=== PATIENT | female | born 1955 | race Caucasian/White ===

== ENCOUNTER 2019-12-16 20:00 | Inpatient (IN) ==
[2019-12-16] MEDS ORDERED: NS 1000 ML 1,000 ML IV ONE (20:20)
[2019-12-16] MEDS ORDERED: NS 1000 ML 1,000 ML ONE ×2 (20:21→21:31)
--- NOTE | 2019-12-16 20:48 | DR.AMS ---
HPI - Time Seen Time seen: 20:00 - HPI Comment HPI Comment: Patient sent through Er as a direct admit to get a covid19 test but due to low BP and low Oxygen sats was admitted as an ER patient. DR. Phillips has given orders. The patient is unresponsive from the long-term and is total care at the long-term. - Source History Provided: Care Home - Mode of Arrival Mode of Arrival: Stretcher - Timing Came On: Gradually Symptoms: Improving - Duration Duration: Constant Duration: Hours - Quality Quality: Decreased Alertness - Severity Severity: Unable to care for self (this is normal for this patient) - Context Recent: None History Of: Dementia, Diabetes - Associated Signs and Symptoms Associated Signs and Symptoms: Unresponsiveness PMH - PMH Past Medical History: Anxiety, CHF, Diabetes, GERD, Hypertension ROS - Review of Systems Constitutional: Weakness Eyes: No Symptoms Reported ENTM: No Symptoms Reported Respiratoy: No Symptoms Reported Cardiovascular: No Symptoms Reported Gastrointestinal/Abdominal: No Symptoms Reported Genitourinary: No Symptoms Reported Neurological: Weakness, Speech Problem Musculoskeletal: No Symptoms Reported Integumentary: No Symptoms Reported Hematologic/Lymphatic: No Symptoms Reported Endocrine: No Symptoms Reported Psychiatric: Depression, Other (psych disorder) Unable to Obtain Due To: Altered mental status PE - General Limitations: Altered Mental Status General Appearance: Obtunded - Head Head Exam: Normal Inspection - Eyes Eye exam: Normal Appearance, PERRL - ENT ENT Exam: Normal Exam External Ear Exam: Normal External Inspection Nose Exam: Normal Nose Exam Mouth Exam: Normal Inspection Throat Exam: Normal Inspection - Neck Neck Exam: Normal Inspection, Full ROM, Trachea Midline - Chest Chest Inspection: Normal Inspection - Respiratory Respiratory Exam: Normal Lung Sounds Bilat Respiratory Exam: Bilateral Clear to Auscultation - Cardiovascular Cardiovascular Exam: Regular Rate - Abdominal Exam Abdominal Exam: Normal Inspection, Normal Bowel Sounds, Soft. negative: Distention, Tenderness, Guarding - Extremities Extremities Exam: Normal Inspection, Full ROM. negative: Tenderness - Neurological Neurological Exam: Other (unable to test) - Psychological Psychiatric Exam: Anxious - Skin Skin Exam: Normal Color - Vitals Vital Signs: Temp Pulse Pulse Resp BP BP Pulse Ox 12/16/19 21:20 62 14 126/56 100 12/16/19 21:15 62 14 100 12/16/19 21:00 64 15 108/53 97 12/16/19 20:59 65 15 91 L 12/16/19 20:45 66 16 112/51 100 12/16/19 20:10 72 16 75/42 100 12/16/19 20:05 72/40 12/16/19 20:00 98.4 F 78 14 71/38 85 L Course - Treatment Treatment: DR. Phillips in ER to check patient, BP increased after IVF ROR - Labs Reviewed Result Diagrams: 12/16/19 20:34 12/16/19 20:34 - XRAY XRAY Interpreted by: Radiologist - EKG Rate: 70 [place]: Normal Rhythm: Afib ST: Nonsp (low voltage) - Labs Reviewed Laboratory: WBC 9.1 X10^3/uL (3.6-10.0) 12/16/19 20:34 RBC 4.35 X10^6/uL (3.5-5.4) 12/16/19 20:34 Hgb 15.1 g/dL (12.0-16.0) 12/16/19 20:34 Hct 45.5 % (36.0-47.0) 12/16/19 20:34 MCV 104.6 fL (80.0-100.0) H 12/16/19 20:34 MCH 34.8 pg (27.0-34.0) H 12/16/19 20:34 MCHC 33.3 g/dL (33.0-35.0) 12/16/19 20:34 RDW 18.9 % (11.6-16.5) H 12/16/19 20:34 Plt Count 155 X10^3/uL (150.0-450.0) 12/16/19 20:34 MPV 10.9 fL (7.4-11.0) 12/16/19 20:34 Neut % (Auto) 68.5 % (42.0-75.0) 12/16/19 20:34 Lymph % (Auto) 17.9 % (21.0-51.0) L 12/16/19 20:34 [place] % (Auto) 11.9 % (0.0-13.0) 12/16/19 20:34 Eos % (Auto) 1.3 % (0.9-2.9) 12/16/19 20:34 Baso % (Auto) 0.4 % (0.2-1.0) 12/16/19 20:34 Neut # (Auto) 6.2 x10^3/uL (2.2-4.8) H 12/16/19 20:34 Lymph # (Auto) 1.6 X10^3/uL (1.3-2.9) 12/16/19 20:34 [place] # (Auto) 1.1 x10^3/uL (0.3-0.8) H 12/16/19 20:34 Eos # (Auto) 0.1 x10^3/uL (0.0-0.2) 12/16/19 20:34 Baso # (Auto) 0.0 X10^3/uL (0.0-0.1) 12/16/19 20:34 Absolute Nucleated RBC 0.2 /100WBC 12/16/19 20:34 Sample Site Rb 12/16/19 21:29 ABG pH 7.410 (7.35-7.45) 12/16/19 21:29 ABG pCO2 44.0 mmHg (35.0-45.0) 12/16/19 21:29 ABG pO2 187.0 mmHg (80.0-100.0) H 12/16/19 21:29 ABG HCO3 27.9 mmol/L (22-26) H 12/16/19 21:29 ABG O2 Saturation 100.0 % (90-100) 12/16/19 21:29 ABG Base Excess 2.8 mmol/L (-2.0-2.0) H 12/16/19 21:29 Fredrick Test Na 12/16/19 21:29 A-a Gradient -42.0 mmHg 12/16/19 21:29 FiO2 28.0 12/16/19 21:29 Blood Gas Comments Gianni abg well-mtf 12/16/19 21:29 Sodium 154 mmol/L (136-145) H* 12/16/19 20:34 Corrected Sodium 156 mmol/L (136-145) H 12/16/19 20:34 Potassium 5.0 mmol/L (3.5-5.1) 12/16/19 20:34 Chloride 118 mmol/L (98-107) H* 12/16/19 20:34 Carbon Dioxide 31.2 mmol/L (21-32) 12/16/19 20:34 BUN 102 mg/dL (7-18) H 12/16/19 20:34 Creatinine 3.42 mg/dL (0.55-1.02) H 12/16/19 20:34 Est GFR (MDRD) Af Amer 17 (>60) L 12/16/19 20:34 Est GFR (MDRD) Non-Af 14 (>60) L 12/16/19 20:34 Glucose 163 mg/dL (65-99) H 12/16/19 20:34 POC Glucose (mg/dL) 129 mg/dL (65-99) H 12/16/19 20:39 Lactic Acid 3.5 mmol/L (0.4-2.0) H 12/16/19 20:34 Calcium 10.8 mg/dL (8.5-10.1) H 12/16/19 20:34 Corrected Calcium 12.2 mg/dL (8.5-10.1) H 12/16/19 20:34 Magnesium 2.8 mg/dL (1.7-2.9) 12/16/19 20:34 Total Bilirubin 3.30 mg/dL (0.2-1.0) H 12/16/19 20:34 AST 50 Units/L (15-37) H 12/16/19 20:34 ALT 43 Units/L (12-78) 12/16/19 20:34 Alkaline Phosphatase 89 Units/L (46-116) 12/16/19 20:34 Creatine Kinase 153 Units/L (26-192) 12/16/19 20:34 CK-MB (CK-2) 2.4 ng/mL (0-4.0) 12/16/19 20:34 CK/CKMB % Calc 1.6 % (<4) 12/16/19 20:34 Troponin I 0.07 ng/mL (0-1.5) 12/16/19 20:34 Total Protein 5.7 g/dL (6.4-8.2) L 12/16/19 20:34 Albumin 2.3 g/dL (3.4-5.0) L 12/16/19 20:34 Globulin 3.4 g/dL (2.5-4.5) 12/16/19 20:34 Albumin/Globulin Ratio 0.7 Ratio (1.1-2.1) L 12/16/19 20:34 - XRAY Xray Findings: chest: IMPRESSION: 1. No acute cardiopulmonary process. (MARQUIS ALBERTS) Opioid - Opioid Risk Tool Total: 0 Total Score Risk Category: Low Risk - Diagnosis Discharge Problem: Altered mental status, unspecified Qualifiers: Altered mental status type: stupor Qualified Code(s): R40.1 - Stupor Hypotension Qualifiers: Hypotension type: hypotension due to hypovolemia Qualified Code(s): I95.89 - Other hypotension - Discharge Plan Condition: Stable - Follow ups/Referrals Follow ups/Referrals: ROBERTO PHILLIPS [Primary Care Provider] - 3 days - Instructions
[2019-12-16 20:56] LABS: BASOPHILS % (AUTO) 0.4 % (0.2-1.0); EOSINOPHILS # (AUTO) 0.1 x10^3/uL (0.0-0.2); EOSINOPHILS % (AUTO) 1.3 % (0.9-2.9); HEMATOCRIT 45.5 % (36.0-47.0); HEMOGLOBIN 15.1 g/dL (12.0-16.0); LYMPHOCYTES # (AUTO) 1.6 X10^3/uL (1.3-2.9); LYMPHOCYTES % (AUTO) 17.9 % (21.0-51.0); MEAN CORPUSCULAR HEMOGLOBIN 34.8 pg (27.0-34.0); MEAN CORPUSCULAR HGB CONC 33.3 g/dL (33.0-35.0); MEAN CORPUSCULAR VOLUME 104.6 fL (80.0-100.0); MEAN PLATELET VOLUME 10.9 fL (7.4-11.0); MONOCYTES # (AUTO) 1.1 x10^3/uL (0.3-0.8); MONOCYTES % (AUTO) 11.9 % (0.0-13.0); NEUTROPHILS # (AUTO) 6.2 x10^3/uL (2.2-4.8); NEUTROPHILS % (AUTO) 68.5 % (42.0-75.0); PLATELET COUNT 155 X10^3/uL (150.0-450.0); RED BLOOD COUNT 4.35 X10^6/uL (3.5-5.4); RED CELL DISTRIBUTION WIDTH 18.9 % (11.6-16.5); WHITE BLOOD COUNT 9.1 X10^3/uL (3.6-10.0)
[2019-12-16] MEDS ORDERED: NS 1000 ML 1,000 ML IV SCH (21:00)
--- NOTE | 2019-12-16 21:13 | RAD ---
CHEST, 1 VIEWHISTORY: AMSStudy: Single view of the chest.Comparison:NoneFindings:The cardiomediastinal silhouette is normal.No focal consolidations, pleural effusions or pneumothorax. Osseous structures demonstrate no acute abnormality.IMPRESSION:1. No acute cardiopulmonary process.Electronically signed by: ROLAND ARANDA (December 16, 2019 21:12:05)
[2019-12-16 21:16] LABS: LACTIC ACID 3.5 mmol/L (0.4-2.0)
[2019-12-16] MEDS ORDERED: NS 100 ML IV + SPIKE MINIBAG* 100 ML IV ONE (21:32)
[2019-12-16] MEDS ORDERED: ROCEPHIN VIAL 1 GRAM ONE (21:32)
[2019-12-16 21:34] LABS: ALBUMIN 2.3 g/dL (3.4-5.0); CALCIUM 10.8 mg/dL (8.5-10.1); CARBON DIOXIDE 31.2 mmol/L (21-32); CKMB % 1.6 % (<4); COR CA(FOR HYPOALB) 12.2 mg/dL (8.5-10.1); CREATINE KINASE MB 2.4 ng/mL (0-4.0); CREATININE 3.42 mg/dL (0.55-1.02); MAGNESIUM 2.8 mg/dL (1.7-2.9); TOTAL PROTEIN 5.7 g/dL (6.4-8.2); TROPONIN I 0.07 ng/mL (0-1.5)
[2019-12-16 21:35] LABS: ABG BASE EXCESS 2.8 mmol/L (-2.0-2.0); ABG HCO3 27.9 mmol/L (22-26)
[2019-12-16] MEDS: ROCEPHIN VIAL 1 GRAM 1 G in NS 100 ML IV + SPIKE MINIBAG* 100 ML IV SCH (21:39)
[2019-12-16] MEDS ORDERED: NS 1000 ML 0 ML ONE (22:21)
[2019-12-17 00:37] LABS: BILIRUBIN,URINE 2+ (NEGATIVE); BLOOD/HEMOGLOBIN,URINE 2+ (NEGATIVE); GLUCOSE, URINE NEGATIVE (NEGATIVE); KETONES,URINE 1+ (NEGATIVE); LEUKOCYTE ESTERASE ,URINE 2+ (NEGATIVE); NITRITES,URINE POSITIVE (NEGATIVE); PROTEIN,URINE 2+ (NEGATIVE); UROBILINOGEN,URINE 3+ (NORMAL)
[2019-12-17 00:55] LABS: APPEARANCE,URINE CLOUDY (CLEAR); BACTERIA,URINE 3+ /HPF (NEGATIVE); COLOR,URINE AMBER (YELLOW); HYALINE CASTS, URINE MODERATE /LPF (NEGATIVE); RBC,URINE 0-2 /HPF (0-3); SQUAMOUS EPITHELIAL CELL,UR NUMEROUS /HPF (NEGATIVE)
[2019-12-17 00:56] LABS: GRANULAR CASTS,URINE FEW /LPF (NEGATIVE)
[2019-12-17 02:11] VITALS: BMI 34.9
[2019-12-17] MEDS ORDERED: PHARMACY CONSULT LTC MEDICATIONS XX SCH (03:00)
[2019-12-17 06:11] LABS: BASOPHILS % (AUTO) 0.4 % (0.2-1.0); EOSINOPHILS # (AUTO) 0.1 x10^3/uL (0.0-0.2); EOSINOPHILS % (AUTO) 1.4 % (0.9-2.9); HEMATOCRIT 42.3 % (36.0-47.0); LYMPHOCYTES % (AUTO) 20.1 % (21.0-51.0); MEAN CORPUSCULAR HEMOGLOBIN 34.7 pg (27.0-34.0); MEAN CORPUSCULAR HGB CONC 33.1 g/dL (33.0-35.0); MEAN PLATELET VOLUME 10.6 fL (7.4-11.0); MONOCYTES # (AUTO) 1.2 x10^3/uL (0.3-0.8); MONOCYTES % (AUTO) 11.8 % (0.0-13.0); NEUTROPHILS # (AUTO) 6.6 x10^3/uL (2.2-4.8); NEUTROPHILS % (AUTO) 66.3 % (42.0-75.0); PLATELET COUNT 131 X10^3/uL (150.0-450.0); RED BLOOD COUNT 4.03 X10^6/uL (3.5-5.4); WHITE BLOOD COUNT 9.9 X10^3/uL (3.6-10.0)
[2019-12-17 06:23] LABS: ALBUMIN 2.2 g/dL (3.4-5.0); CALCIUM 10.2 mg/dL (8.5-10.1); CARBON DIOXIDE 29.2 mmol/L (21-32); COR CA(FOR HYPOALB) 11.6 mg/dL (8.5-10.1); CREATININE 3.03 mg/dL (0.55-1.02); TOTAL PROTEIN 5.2 g/dL (6.4-8.2)
[2019-12-17] MEDS: ROCEPHIN VIAL 1 GRAM 1 G in NS 100 ML IV + SPIKE MINIBAG* 100 ML IV SCH (08:32)
[2019-12-17] MEDS ORDERED: TYLENOL 325 MG TAB PO PRN (08:38)
[2019-12-17] MEDS: ASPIRIN 81 MG CHEWTAB PO SCH (11:51)
[2019-12-17] MEDS: BUSPAR PO SCH ×2 (11:57→22:16)
[2019-12-17] MEDS: LOVENOX INJ 30 MG SYR SC SCH (12:30)
[2019-12-17] MEDS: NS 1/2 1000 ML IV 1,000 ML IV SCH ×2 (12:42→22:40)
[2019-12-17] MEDS ORDERED: NS 1/2 1000 ML IV 1,000 ML IV ONE ×2 (12:43→22:40)
[2019-12-17] MEDS: PRAVACHOL PO SCH (22:18)
[2019-12-18 06:18] LABS: BASOPHILS # (AUTO) 0.1 X10^3/uL (0.0-0.1); BASOPHILS % (AUTO) 0.7 % (0.2-1.0); EOSINOPHILS # (AUTO) 0.2 x10^3/uL (0.0-0.2); EOSINOPHILS % (AUTO) 1.8 % (0.9-2.9); HEMATOCRIT 39.8 % (36.0-47.0); HEMOGLOBIN 13.3 g/dL (12.0-16.0); LYMPHOCYTES # (AUTO) 1.8 X10^3/uL (1.3-2.9); LYMPHOCYTES % (AUTO) 16.9 % (21.0-51.0); MEAN CORPUSCULAR HGB CONC 33.5 g/dL (33.0-35.0); MEAN CORPUSCULAR VOLUME 104.6 fL (80.0-100.0); MEAN PLATELET VOLUME 11.2 fL (7.4-11.0); MONOCYTES # (AUTO) 1.1 x10^3/uL (0.3-0.8); MONOCYTES % (AUTO) 10.2 % (0.0-13.0); NEUTROPHILS # (AUTO) 7.6 x10^3/uL (2.2-4.8); NEUTROPHILS % (AUTO) 70.4 % (42.0-75.0); PLATELET COUNT 151 X10^3/uL (150.0-450.0); RED CELL DISTRIBUTION WIDTH 18.4 % (11.6-16.5); WHITE BLOOD COUNT 10.8 X10^3/uL (3.6-10.0)
[2019-12-18 06:40] LABS: ALBUMIN 2.2 g/dL (3.4-5.0); CALCIUM 10.2 mg/dL (8.5-10.1); CARBON DIOXIDE 26.1 mmol/L (21-32); COR CA(FOR HYPOALB) 11.6 mg/dL (8.5-10.1); CREATININE 2.84 mg/dL (0.55-1.02); TOTAL PROTEIN 5.3 g/dL (6.4-8.2)
[2019-12-18] MEDS: ROCEPHIN VIAL 1 GRAM 1 G in NS 100 ML IV + SPIKE MINIBAG* 100 ML IV SCH (09:21)
[2019-12-18] MEDS: LOVENOX INJ 30 MG SYR SC SCH (09:21)
[2019-12-18] MEDS: ASPIRIN 81 MG CHEWTAB PO SCH (09:24)
[2019-12-18] MEDS: BUSPAR PO SCH (09:24)
--- NOTE | 2019-12-18 10:08 | CT ---
HISTORYAMSSTUDYMRI BRAIN W/O IV CONCOMPARISONCT 04/08/2019TECHNIQUEMultiple axial images of the brain were obtained without IV contrast. Dose reduction techniques including Automated Exposure Control (AEC) and adjustment of mA and kV were utilized.FINDINGSVisualized portions of the paranasal sinuses and mastoid air cells are clear. No calvarial fracture is seen. No acute intracranial hemorrhage or mass effect is seen. Moderate diffuse volume loss in the brain with compensatory enlargement of the ventricular system, similar to prior study. No evidence of acute CVA. Mild chronic small vessel ischemic changes in the white matter are likely similar to prior study.IMPRESSIONNo acute intracranial abnormalities are seen.Electronically signed by: Pérez Jung (Dec 18, 2019 10:06:56)
[2019-12-18] MEDS ORDERED: NS 1/2 1000 ML IV 1,000 ML IV ONE (16:14)
[2019-12-18] MEDS: NS 1/2 1000 ML IV 1,000 ML IV SCH (16:20)
[2019-12-18 18:35] LABS: ABG BASE EXCESS 4.3 mmol/L (-2.0-2.0); ABG HCO3 29.8 mmol/L (22-26)
[2019-12-18 18:36] LABS: ABG ALLEN TEST POS
[2019-12-18 20:05] LABS: TROPONIN I 0.13 ng/mL (0-1.5)
[2019-12-18 20:09] LABS: CKMB % 0.7 % (<4); CREATINE KINASE MB 10.4 ng/mL (0-4.0)
[2019-12-18] MEDS: PRAVACHOL PO SCH (21:18)
--- NOTE | 2019-12-18 23:07 | RAD ---
HISTORYams hypotension dehydration.br conditionSTUDYCHEST, 1 VIEWCOMPARISONMay 2019FINDINGSThe patient is rotated. The cardiac silhouette is enlarged with prominence of the central pulmonary vasculature. Increased interstitial markings and mild bronchial wall thickening are also noted.. The aorta is partially calcified and tortuous.IMPRESSIONCardiomegaly with prominence of the central pulmonary vasculature.Increased interstitial markings and mild bronchial wall thickening.Electronically signed by: OSMAN THOMAS (Dec 18, 2019 23:06:02)
[2019-12-19] MEDS ORDERED: NS 1/2 1000 ML IV 1,000 ML IV ONE ×2 (00:31→18:09)
[2019-12-19] MEDS: NS 1/2 1000 ML IV 1,000 ML IV SCH ×3 (00:36→18:39)
[2019-12-19 05:42] LABS: BASOPHILS # (AUTO) 0.1 X10^3/uL (0.0-0.1); BASOPHILS % (AUTO) 0.6 % (0.2-1.0); EOSINOPHILS # (AUTO) 0.3 x10^3/uL (0.0-0.2); EOSINOPHILS % (AUTO) 4.1 % (0.9-2.9); HEMATOCRIT 40.2 % (36.0-47.0); HEMOGLOBIN 13.3 g/dL (12.0-16.0); LYMPHOCYTES # (AUTO) 1.7 X10^3/uL (1.3-2.9); LYMPHOCYTES % (AUTO) 19.6 % (21.0-51.0); MEAN CORPUSCULAR HEMOGLOBIN 34.9 pg (27.0-34.0); MEAN CORPUSCULAR HGB CONC 33.1 g/dL (33.0-35.0); MEAN CORPUSCULAR VOLUME 105.5 fL (80.0-100.0); MEAN PLATELET VOLUME 10.7 fL (7.4-11.0); MONOCYTES # (AUTO) 0.9 x10^3/uL (0.3-0.8); MONOCYTES % (AUTO) 10.2 % (0.0-13.0); NEUTROPHILS # (AUTO) 5.5 x10^3/uL (2.2-4.8); NEUTROPHILS % (AUTO) 65.5 % (42.0-75.0); PLATELET COUNT 130 X10^3/uL (150.0-450.0); RED BLOOD COUNT 3.81 X10^6/uL (3.5-5.4); WHITE BLOOD COUNT 8.5 X10^3/uL (3.6-10.0)
[2019-12-19 05:55] LABS: ALBUMIN 2.1 g/dL (3.4-5.0); CARBON DIOXIDE 30.6 mmol/L (21-32); COR CA(FOR HYPOALB) 11.5 mg/dL (8.5-10.1); CREATININE 2.13 mg/dL (0.55-1.02); TOTAL PROTEIN 5.1 g/dL (6.4-8.2)
[2019-12-19 06:21] LABS: PLATELET MORPHOLOGY COMMENT NORMAL (NORMAL)
[2019-12-19 07:24] LABS: TROPONIN I 0.1 ng/mL (0-1.5)
[2019-12-19 07:28] LABS: CREATINE KINASE MB 10.4 ng/mL (0-4.0)
[2019-12-19] MEDS: LOVENOX INJ 30 MG SYR SC SCH (09:25)
[2019-12-19] MEDS: ROCEPHIN VIAL 1 GRAM 1 G in NS 100 ML IV + SPIKE MINIBAG* 100 ML IV SCH (09:25)
[2019-12-19] MEDS: ASPIRIN 81 MG CHEWTAB PO SCH (10:32)
--- NOTE | 2019-12-19 12:46 | MRI ---
HISTORYALTERED MENTAL STATUSSTUDYBRAIN W/O CONCOMPARISONCT head dated 12/18/2019TECHNIQUEMultiplanar multi-sequence MRI of the brain was obtained utilizing standard departmental protocol. Sagittal and axial T1 weighted images were obtained. Axial T2 and flair weighted images were performed as well. Axial diffusion weighted and ADC trace mapping was performed.FINDINGSThere is motion artifact. There is mild central and peripheral volume loss. There is no evidence of acute infarct. No focal areas of restricted diffusion. . No evidence of sellar masses. No extra axial fluid collections, no suspicions for abnormal intraparenchymal susceptibility artifact,the visualization of the flow-voids is limited. Mild high signal in the left mastoid cellsIMPRESSIONNo evidence of acute infarct or focal areas of restricted diffusion. Central and peripheral volume loss. Motion artifact. No dominant hematomas.Fairly deep in the left mastoid cellStud can be repeated with sedation or when the clinical condition improvedElectronically signed by: Katt Quinteros (Dec 19, 2019 12:45:11)
--- NOTE | 2019-12-19 15:29 | RAD ---
HISTORYNG TUBE PLACEMENT HX UNKNOWN DUE TO PT NONVERBALSTUDYKUBCOMPARISONNoneFINDINGSTeres and massive gastric to below the diaphragm with the tip projecting in the left upper quadrant probably in the stomach fundus. There is large amount of stool throughout the colon including the rectosigmoid colon. No abnormally dilated small-bowel loops. There are some dense radiopacities in the lower pelvis projecting at the left SI joint probably in the rec tosigmoid colon probably fecalith.IMPRESSIONNasogastric tube with tip in the left upper quadrant prob ably in the stomach fundus. Severe constipationElectronically signed by: Katt Quinteros (Dec 19, 2019 1 5:28:18)
[2019-12-19] MEDS ORDERED: CHRONULAC PO NR (16:00)
[2019-12-19] MEDS: PRAVACHOL PO SCH (20:00)
[2019-12-19] MEDS: CHRONULAC PO SCH (20:00)
[2019-12-20] MEDS: CHRONULAC PO SCH ×4 (02:01→20:30)
[2019-12-20] MEDS ORDERED: NS 1/2 1000 ML IV 1,000 ML IV ONE ×2 (02:02→19:27)
[2019-12-20] MEDS: NS 1/2 1000 ML IV 1,000 ML IV SCH ×3 (02:03→19:51)
[2019-12-20 06:43] LABS: ALBUMIN 2.1 g/dL (3.4-5.0); CALCIUM 10.2 mg/dL (8.5-10.1); CARBON DIOXIDE 29.3 mmol/L (21-32); COR CA(FOR HYPOALB) 11.7 mg/dL (8.5-10.1); CREATININE 1.8 mg/dL (0.55-1.02); TOTAL PROTEIN 5.1 g/dL (6.4-8.2)
[2019-12-20 06:48] LABS: BASOPHILS % (AUTO) 0.5 % (0.2-1.0); EOSINOPHILS # (AUTO) 0.4 x10^3/uL (0.0-0.2); EOSINOPHILS % (AUTO) 4.8 % (0.9-2.9); HEMATOCRIT 38.2 % (36.0-47.0); HEMOGLOBIN 12.8 g/dL (12.0-16.0); LYMPHOCYTES # (AUTO) 1.2 X10^3/uL (1.3-2.9); LYMPHOCYTES % (AUTO) 16.5 % (21.0-51.0); MEAN CORPUSCULAR HEMOGLOBIN 34.9 pg (27.0-34.0); MEAN CORPUSCULAR HGB CONC 33.4 g/dL (33.0-35.0); MEAN CORPUSCULAR VOLUME 104.7 fL (80.0-100.0); MEAN PLATELET VOLUME 10.4 fL (7.4-11.0); MONOCYTES # (AUTO) 0.8 x10^3/uL (0.3-0.8); MONOCYTES % (AUTO) 11.3 % (0.0-13.0); NEUTROPHILS # (AUTO) 4.9 x10^3/uL (2.2-4.8); NEUTROPHILS % (AUTO) 66.9 % (42.0-75.0); PLATELET COUNT 119 X10^3/uL (150.0-450.0); RED BLOOD COUNT 3.65 X10^6/uL (3.5-5.4); RED CELL DISTRIBUTION WIDTH 18.8 % (11.6-16.5); WHITE BLOOD COUNT 7.3 X10^3/uL (3.6-10.0)
[2019-12-20] MEDS ORDERED: DULCOLAX SUPPOSITORY 10 MG RECTAL ONE (08:48)
[2019-12-20] MEDS: ASPIRIN 81 MG CHEWTAB PO SCH (09:17)
[2019-12-20] MEDS: ROCEPHIN VIAL 1 GRAM 1 G in NS 100 ML IV + SPIKE MINIBAG* 100 ML IV SCH (09:17)
[2019-12-20] MEDS: LOVENOX INJ 30 MG SYR SC SCH (10:03)
--- NOTE | 2019-12-20 10:22 | RAD ---
HISTORYCentral line placedSTUDYCHEST, 1 [id number]/02/2020FINDINGSThere is a left-sided central line with its tip in the superior vena cava. There is a nasogastric tube in good position. The heart is enlarged. No congestive heart failure is noted. No acute alveolar infiltrates or pleural effusions are identified. Bony thorax is unremarkable.IMPRESSIONLeft-sided central line tip superior vena cavaLungs clearElectronically signed by: NAVYA AIKEN (Dec 20, 2019 10:21:18)
[2019-12-20] MEDS: PRAVACHOL PO SCH (20:30)
[2019-12-21] MEDS: CHRONULAC PO SCH ×4 (02:39→20:25)
[2019-12-21] MEDS: NS 1/2 1000 ML IV 1,000 ML IV SCH ×4 (04:54→22:59)
[2019-12-21 06:25] LABS: BASOPHILS # (AUTO) 0.1 X10^3/uL (0.0-0.1); BASOPHILS % (AUTO) 0.9 % (0.2-1.0); EOSINOPHILS # (AUTO) 0.5 x10^3/uL (0.0-0.2); EOSINOPHILS % (AUTO) 7.7 % (0.9-2.9); HEMATOCRIT 37.3 % (36.0-47.0); HEMOGLOBIN 12.6 g/dL (12.0-16.0); LYMPHOCYTES # (AUTO) 1.5 X10^3/uL (1.3-2.9); LYMPHOCYTES % (AUTO) 21.5 % (21.0-51.0); MEAN CORPUSCULAR HEMOGLOBIN 35.4 pg (27.0-34.0); MEAN CORPUSCULAR HGB CONC 33.7 g/dL (33.0-35.0); MEAN CORPUSCULAR VOLUME 104.9 fL (80.0-100.0); MEAN PLATELET VOLUME 10.1 fL (7.4-11.0); MONOCYTES # (AUTO) 0.8 x10^3/uL (0.3-0.8); MONOCYTES % (AUTO) 12.1 % (0.0-13.0); NEUTROPHILS # (AUTO) 4.1 x10^3/uL (2.2-4.8); NEUTROPHILS % (AUTO) 57.8 % (42.0-75.0); PLATELET COUNT 110 X10^3/uL (150.0-450.0); RED BLOOD COUNT 3.55 X10^6/uL (3.5-5.4); RED CELL DISTRIBUTION WIDTH 18.5 % (11.6-16.5)
[2019-12-21 06:35] LABS: ALBUMIN 2.1 g/dL (3.4-5.0); CALCIUM 10.1 mg/dL (8.5-10.1); CARBON DIOXIDE 29.7 mmol/L (21-32); COR CA(FOR HYPOALB) 11.6 mg/dL (8.5-10.1); CREATININE 1.76 mg/dL (0.55-1.02)
[2019-12-21] MEDS ORDERED: NS 1/2 1000 ML IV 1,000 ML IV ONE ×2 (09:18→20:00)
[2019-12-21] MEDS: ROCEPHIN VIAL 1 GRAM 1 G in NS 100 ML IV + SPIKE MINIBAG* 100 ML IV SCH (09:24)
[2019-12-21] MEDS: LOVENOX INJ 30 MG SYR SC SCH (09:24)
[2019-12-21] MEDS: ASPIRIN 81 MG CHEWTAB PO SCH (09:24)
[2019-12-21] MEDS ORDERED: LASIX IVP ONE (12:08)
[2019-12-21] MEDS: XIFAXAN PO SCH ×2 (13:55→20:25)
[2019-12-21] MEDS: PRAVACHOL PO SCH (20:25)
[2019-12-22] MEDS: CHRONULAC PO SCH ×4 (02:56→21:55)
[2019-12-22] MEDS: NS 1/2 1000 ML IV 1,000 ML IV SCH ×2 (05:10→11:38)
[2019-12-22 06:53] LABS: BASOPHILS # (AUTO) 0.1 X10^3/uL (0.0-0.1); BASOPHILS % (AUTO) 0.8 % (0.2-1.0); EOSINOPHILS # (AUTO) 0.6 x10^3/uL (0.0-0.2); EOSINOPHILS % (AUTO) 8.5 % (0.9-2.9); HEMATOCRIT 39.8 % (36.0-47.0); HEMOGLOBIN 13.3 g/dL (12.0-16.0); LYMPHOCYTES # (AUTO) 1.2 X10^3/uL (1.3-2.9); LYMPHOCYTES % (AUTO) 17.3 % (21.0-51.0); MEAN CORPUSCULAR HEMOGLOBIN 35.4 pg (27.0-34.0); MEAN CORPUSCULAR HGB CONC 33.5 g/dL (33.0-35.0); MEAN CORPUSCULAR VOLUME 105.7 fL (80.0-100.0); MEAN PLATELET VOLUME 10.2 fL (7.4-11.0); MONOCYTES # (AUTO) 0.8 x10^3/uL (0.3-0.8); MONOCYTES % (AUTO) 11.2 % (0.0-13.0); NEUTROPHILS # (AUTO) 4.5 x10^3/uL (2.2-4.8); NEUTROPHILS % (AUTO) 62.2 % (42.0-75.0); PLATELET COUNT 105 X10^3/uL (150.0-450.0); RED BLOOD COUNT 3.77 X10^6/uL (3.5-5.4); RED CELL DISTRIBUTION WIDTH 18.5 % (11.6-16.5); WHITE BLOOD COUNT 7.2 X10^3/uL (3.6-10.0)
[2019-12-22 07:11] LABS: PLATELET MORPHOLOGY COMMENT NORMAL (NORMAL)
[2019-12-22 07:12] LABS: ANISOCYTOSIS SLIGHT
[2019-12-22 07:17] LABS: ALBUMIN 2.2 g/dL (3.4-5.0); CALCIUM 10.1 mg/dL (8.5-10.1); CARBON DIOXIDE 29.1 mmol/L (21-32); COR CA(FOR HYPOALB) 11.5 mg/dL (8.5-10.1); CREATININE 1.46 mg/dL (0.55-1.02); TOTAL PROTEIN 5.3 g/dL (6.4-8.2)
[2019-12-22] MEDS: ROCEPHIN VIAL 1 GRAM 1 G in NS 100 ML IV + SPIKE MINIBAG* 100 ML IV SCH (09:12)
[2019-12-22] MEDS: XIFAXAN PO SCH ×2 (09:13→21:56)
[2019-12-22] MEDS: ASPIRIN 81 MG CHEWTAB PO SCH (09:13)
[2019-12-22] MEDS: LOVENOX INJ 30 MG SYR SC SCH (09:19)
--- NOTE | 2019-12-22 11:04 | PCM.PROG ---
Progress Note Progress Note for Day of Date of Exam: 12/22/19 Subjective Subjective: Pt is a 64 yo f direct admit from [facility] with severe dehydration, acute renal failure, altered mental status, and hypotension. Labs/imaging: Wbc 7.2, Hgb 13.3, Plt 105, Na 151, K 3.9, Cr 1.46, Gluc 145, T bilirubin 1.7>2.0, Ammonia 147. Per nursing she did have bowel movements y esterday, she has been receiving Lactulose for encephalopathy, however her ammonia levels continues to trend up. Will try lactulose enema today. Renal function has gradually improved since admission. Head CT/Brain MRI neg for CVA, ruled out brain stem infarct. BP has stabilized, her sodium has been slowly improving, today 151. She is receiving free water via her NG tube as well as normal saline at [facility]. Continuing Rocephin and Zyvox for a urinary tract infection. Her urine and blood cultures shows contamination. This morning patient difficult to arouse and sleeping. Discussed with nursing that daughter from [place] possibly coming down this weekend to discuss advance care directives. Will continue to monitor and follow up labs in the morning. Past Medical Family Social History Past Med/Fam/Surg Hx: No changes since H&P Allergies: Allergies No Known Drug Allergies Allergy (Verified 12/16/19 20:41) Review of Systems ROS: No change since H&P Vital Signs and I&O's Vital Signs: Temperature 98.0 F Pulse Rate [Apical] 60 Pulse Rate 65 Respiratory Rate 14 Blood Pressure [Left Arm] 139/65 Blood Pressure 100/57 O2 Sat by Pulse Oximetry 100 Intake and Output: Intake & Output 12/19/19 12/20/19 12/21/19 12/22/19 23:59 23:59 23:59 23:59 Intake Total 1120 / 1120 1440 / 1440 1290 / 1290 640 / 640 Output Total 700 / 700 1325 / 1325 2049 / 2049 250 / 250 Balance 420 / 420 115 / 115 -760 / -760 390 / 390 Physical Exam Oriented: Not Oriented Eyes: Normal Ear: Normal Nose: Normal Throat: Normal Respiratory: Normal Cardiovascular: Normal : Normal Auscultation: Bowel Sounds: Normal Tenderness: Normal Skin: Normal Mood Description: Calm Speech Pattern: Aphasic Laboratory and Diagnostics Result Diagrams: 12/22/19 06:30 12/22/19 06:30 Labs: 12/16/19 20:34 Blood Blood Culture - Final 12/16/19 21:15 Blood Blood Culture - Final 12/17/19 00:05 Urine,Catheterized Urine Culture - Final Laboratory WBC 7.2 X10^3/uL (3.6-10.0) 12/22/19 06:30 RBC 3.77 X10^6/uL (3.5-5.4) 12/22/19 06:30 Hgb 13.3 g/dL (12.0-16.0) 12/22/19 06:30 Hct 39.8 % (36.0-47.0) 12/22/19 06:30 MCV 105.7 fL (80.0-100.0) H 12/22/19 06:30 MCH 35.4 pg (27.0-34.0) H 12/22/19 06:30 MCHC 33.5 g/dL (33.0-35.0) 12/22/19 06:30 RDW 18.5 % (11.6-16.5) H 12/22/19 06:30 Plt Count 105 X10^3/uL (150.0-450.0) L 12/22/19 06:30 Plt Count Comment Decreased (ADEQUATE) A 12/22/19 06:30 MPV 10.2 fL (7.4-11.0) 12/22/19 06:30 Neut % (Auto) 62.2 % (42.0-75.0) 12/22/19 06:30 Lymph % (Auto) 17.3 % (21.0-51.0) L 12/22/19 06:30 [place] % (Auto) 11.2 % (0.0-13.0) 12/22/19 06:30 Eos % (Auto) 8.5 % (0.9-2.9) H 12/22/19 06:30 Baso % (Auto) 0.8 % (0.2-1.0) 12/22/19 06:30 Neut # (Auto) 4.5 x10^3/uL (2.2-4.8) 12/22/19 06:30 Lymph # (Auto) 1.2 X10^3/uL (1.3-2.9) L 12/22/19 06:30 [place] # (Auto) 0.8 x10^3/uL (0.3-0.8) 12/22/19 06:30 Eos # (Auto) 0.6 x10^3/uL (0.0-0.2) H 12/22/19 06:30 Baso # (Auto) 0.1 X10^3/uL (0.0-0.1) 12/22/19 06:30 Absolute Nucleated RBC 0.1 /100WBC 12/22/19 06:30 Plt Morphology Comment Normal (NORMAL) 12/22/19 06:30 RBC Morphology Abnormal (NORMAL) A 12/22/19 06:30 Anisocytosis Slight A 12/22/19 06:30 Macrocytosis 1+ A 12/22/19 06:30 Sample Site Rrad 12/18/19 18:26 ABG pH 7.410 (7.35-7.45) 12/18/19 18:26 ABG pCO2 47.0 mmHg (35.0-45.0) H 12/18/19 18:26 ABG pO2 124.0 mmHg (80.0-100.0) H 12/18/19 18:26 ABG HCO3 29.8 mmol/L (22-26) H 12/18/19 18:26 ABG O2 Saturation 99.0 % (90-100) 12/18/19 18:26 ABG Base Excess 4.3 mmol/L (-2.0-2.0) H 12/18/19 18:26 Fredrick Test Pos 12/18/19 18:26 A-a Gradient 17.0 mmHg 12/18/19 18:26 FiO2 28.0 12/18/19 18:26 Blood Gas Comments Pt volodymyr well elj 12/18/19 18:26 Sodium 150 mmol/L (136-145) H* 12/22/19 06:30 Corrected Sodium 151 mmol/L (136-145) H 12/22/19 06:30 Potassium 3.9 mmol/L (3.5-5.1) 12/22/19 06:30 Chloride 118 mmol/L (98-107) H* 12/22/19 06:30 Carbon Dioxide 29.1 mmol/L (21-32) 12/22/19 06:30 BUN 55 mg/dL (7-18) H 12/22/19 06:30 Creatinine 1.46 mg/dL (0.55-1.02) H 12/22/19 06:30 Est GFR (MDRD) Af Amer 46 (>60) L 12/22/19 06:30 Est GFR (MDRD) Non-Af 38 (>60) L 12/22/19 06:30 Glucose 145 mg/dL (65-99) H 12/22/19 06:30 POC Glucose (mg/dL) 125 mg/dL (65-99) H 12/22/19 05:35 Lactic Acid 2.9 mmol/L (0.4-2.0) H 12/17/19 09:15 Calcium 10.1 mg/dL (8.5-10.1) 12/22/19 06:30 Corrected Calcium 11.5 mg/dL (8.5-10.1) H 12/22/19 06:30 Magnesium 2.8 mg/dL (1.7-2.9) 12/16/19 20:34 Total Bilirubin 2.00 mg/dL (0.2-1.0) H 12/22/19 06:30 AST 81 Units/L (15-37) H 12/22/19 06:30 ALT 52 Units/L (12-78) 12/22/19 06:30 Alkaline Phosphatase 100 Units/L (46-116) 12/22/19 06:30 Ammonia 147 umol/L (11-32) H 12/22/19 06:30 Creatine Kinase 1003 Units/L (26-192) H 12/19/19 05:05 CK-MB (CK-2) 10.4 ng/mL (0-4.0) H* 12/19/19 05:05 CK/CKMB % Calc 1.0 % (<4) 12/19/19 05:05 Troponin I 0.10 ng/mL (0-1.5) 12/19/19 05:05 Total Protein 5.3 g/dL (6.4-8.2) L 12/22/19 06:30 Albumin 2.2 g/dL (3.4-5.0) L 12/22/19 06:30 Globulin 3.1 g/dL (2.5-4.5) 12/22/19 06:30 Albumin/Globulin Ratio 0.7 Ratio (1.1-2.1) L 12/22/19 06:30 Specimen Type Catherized urine 12/17/19 00:05 Urine Color Jayne (YELLOW) 12/17/19 00:05 Urine Appearance Cloudy (CLEAR) 12/17/19 00:05 Urine pH 5.0 (5.0 - 8.0) 12/17/19 00:05 Ur Specific Jber 1.020 (1.000-1.030) 12/17/19 00:05 Urine Protein 2+ (NEGATIVE) 12/17/19 00:05 Urine Glucose (UA) Negative (NEGATIVE) 12/17/19 00:05 Urine Ketones 1+ (NEGATIVE) 12/17/19 00:05 Urine Occult Blood 2+ (NEGATIVE) 12/17/19 00:05 Urine Nitrite Positive (NEGATIVE) 12/17/19 00:05 Urine Bilirubin 2+ (NEGATIVE) 12/17/19 00:05 Urine Urobilinogen 3+ (NORMAL) 12/17/19 00:05 Ur Leukocyte Esterase 2+ (NEGATIVE) 12/17/19 00:05 Urine RBC 0-2 /HPF (0-3) 12/17/19 00:05 Urine WBC 5-10 /HPF (0-5) A 12/17/19 00:05 Ur Squamous Epith Cells Numerous /HPF (NEGATIVE) 12/17/19 00:05 Urine Bacteria 3+ /HPF (NEGATIVE) 12/17/19 00:05 Hyaline Casts Moderate /LPF (NEGATIVE) 12/17/19 00:05 Granular Casts Few /LPF (NEGATIVE) 12/17/19 00:05 Ur Culture Indicated? Yes/culture set up 12/17/19 00:05 SARS-CoV-2 (PCR) Negative (NEGATIVE) 12/16/19 20:20 Plan (1) Altered mental status, unspecified: Status: Acute Qualifiers: Altered mental status type: stupor Qualified Code(s): R40.1 - Stupor Plan: -Suspect that this is due to hepatic encephalopathy with elevated ammonia levels. She is currently on Lactulose. Ammonia levels trending up will give lactulose enema today. 5. Hypertension. We have not resumed her anti-hypertensive medications because of her severe hypotension on arrival. Her blood pressure continues to be stable at 117/56 this morning. (2) Acute renal failure: Status: Acute Plan: Continue with gentle hydration with free water via the NG tube along with normal saline as KVO. We will perform speech consult when the patient is more awake to assess for the ability to tolerate oral intake. She is still NPO at this time. (3) Hypernatremia: Status: Acute Plan: Continue to trend (4) UTI (urinary tract infection): Status: Acute Plan: Continue Rocephin+Zyvox (5) Hypertension: Status: Acute
[2019-12-22] MEDS ORDERED: NS 1/2 1000 ML IV 1,000 ML IV ONE ×2 (11:16→23:47)
[2019-12-22] MEDS ORDERED: FLEET ENEMA ADULT RECTAL ONE (12:00)
[2019-12-22] MEDS: PRAVACHOL PO SCH (21:56)
[2019-12-23] MEDS: CHRONULAC PO SCH ×4 (05:00→21:37)
[2019-12-23 06:31] LABS: BASOPHILS # (AUTO) 0.1 X10^3/uL (0.0-0.1); BASOPHILS % (AUTO) 1.1 % (0.2-1.0); EOSINOPHILS # (AUTO) 0.6 x10^3/uL (0.0-0.2); EOSINOPHILS % (AUTO) 9.7 % (0.9-2.9); HEMATOCRIT 40.4 % (36.0-47.0); HEMOGLOBIN 13.4 g/dL (12.0-16.0); LYMPHOCYTES # (AUTO) 1.6 X10^3/uL (1.3-2.9); LYMPHOCYTES % (AUTO) 25.8 % (21.0-51.0); MEAN CORPUSCULAR HEMOGLOBIN 35.3 pg (27.0-34.0); MEAN CORPUSCULAR HGB CONC 33.2 g/dL (33.0-35.0); MEAN CORPUSCULAR VOLUME 106.2 fL (80.0-100.0); MEAN PLATELET VOLUME 10.7 fL (7.4-11.0); MONOCYTES # (AUTO) 0.8 x10^3/uL (0.3-0.8); MONOCYTES % (AUTO) 12.4 % (0.0-13.0); NEUTROPHILS # (AUTO) 3.1 x10^3/uL (2.2-4.8); PLATELET COUNT 92 X10^3/uL (150.0-450.0); RED CELL DISTRIBUTION WIDTH 18.3 % (11.6-16.5)
[2019-12-23 06:37] LABS: AMMONIA 75 umol/L (11-32)
[2019-12-23 06:47] LABS: ALANINE AMINOTRANSFERASE 48 Units/L (12-78); ALKALINE PHOSPHATASE 99 Units/L (46-116); ANISOCYTOSIS SLIGHT; ASPARTATE AMINO TRANSFERASE 66 Units/L (15-37); BLOOD UREA NITROGEN 46 mg/dL (7-18); CARBON DIOXIDE 27.7 mmol/L (21-32); COR CA(FOR HYPOALB) 11.6 mg/dL (8.5-10.1); COR NA(FOR HYPERGLY) 150 mmol/L (136-145); CREATININE 1.09 mg/dL (0.55-1.02); PLATELET MORPHOLOGY COMMENT NORMAL (NORMAL); SODIUM 149 mmol/L (136-145); eGFR NON BLACK RACES 53 (>60)
[2019-12-23 06:50] LABS: CHLORIDE 116 mmol/L (98-107)
[2019-12-23] MEDS ORDERED: NS 100 ML IV + SPIKE MINIBAG* 100 ML IV ONE (08:42)
[2019-12-23] MEDS: XIFAXAN PO SCH ×2 (09:51→21:37)
[2019-12-23] MEDS: ASPIRIN 81 MG CHEWTAB PO SCH (09:51)
[2019-12-23] MEDS: ROCEPHIN VIAL 1 GRAM 1 G in NS 100 ML IV 100 ML IV SCH (09:52)
--- NOTE | 2019-12-23 11:09 | PCM.PROG ---
Progress Note Progress Note for Day of Date of Exam: 12/23/19 Subjective Subjective: Pt is a 64 yo f direct admit from [facility] with severe dehydration, acute renal failure, altered mental status, and hypotension. Labs/imaging: Wbc 6, Hgb 13.4, Plt 92, Na 150, K 4.1, Cr 1.09, Gluc 127, T bilirubin 2.0>1.8, Ammonia 147>75. Last night patient bradycardic, nursing no tified daughter who is POA and she made decision to change code status to DNR. She remains in a comatose state, responds to sternal rub. Discussed with daughter plan of care who just arrived from traveling overnight from [place]. She will explore the options including hospice. Continuing Rocephin and Zyvox for a urinary tract infection. Will continue to monitor and follow up labs in the morning. Past Medical Family Social History Past Med/Fam/Surg Hx: No changes since H&P Allergies: Allergies No Known Drug Allergies Allergy (Verified 12/16/19 20:41) Review of Systems ROS: No change since H&P Vital Signs and I&O's Vital Signs: Temperature 97.5 F Pulse Rate [Apical] 57 Pulse Rate 65 Respiratory Rate 10 Blood Pressure [Left Arm] 127/59 Blood Pressure 100/57 O2 Sat by Pulse Oximetry 100 Intake and Output: Intake & Output 12/20/19 12/21/19 12/22/19 12/23/19 23:59 23:59 23:59 23:59 Intake Total 1440 / 1440 1290 / 1290 5577 / 5577 740 / 740 Output Total 1325 / 1325 2049 / 2049 900 / 900 225 / 225 Balance 115 / 115 -760 / -760 4677 / 4677 515 / 515 Physical Exam Oriented: Not Oriented Eyes: Normal Ear: Normal Nose: Normal Throat: Normal Respiratory: Normal Cardiovascular: Normal : Normal Auscultation: Bowel Sounds: Normal Tenderness: Normal Skin: Normal Psychiatric: Other Speech Pattern: Aphasic Laboratory and Diagnostics Result Diagrams: 12/23/19 06:00 12/23/19 06:00 Labs: 12/16/19 20:34 Blood Blood Culture - Final 12/16/19 21:15 Blood Blood Culture - Final 12/17/19 00:05 Urine,Catheterized Urine Culture - Final Laboratory WBC 6.0 X10^3/uL (3.6-10.0) 12/23/19 06:00 RBC 3.80 X10^6/uL (3.5-5.4) 12/23/19 06:00 Hgb 13.4 g/dL (12.0-16.0) 12/23/19 06:00 Hct 40.4 % (36.0-47.0) 12/23/19 06:00 MCV 106.2 fL (80.0-100.0) H 12/23/19 06:00 MCH 35.3 pg (27.0-34.0) H 12/23/19 06:00 MCHC 33.2 g/dL (33.0-35.0) 12/23/19 06:00 RDW 18.3 % (11.6-16.5) H 12/23/19 06:00 Plt Count 92 X10^3/uL (150.0-450.0) L 12/23/19 06:00 Plt Count Comment Decreased (ADEQUATE) A 12/23/19 06:00 MPV 10.7 fL (7.4-11.0) 12/23/19 06:00 Neut % (Auto) 51.0 % (42.0-75.0) 12/23/19 06:00 Lymph % (Auto) 25.8 % (21.0-51.0) 12/23/19 06:00 [place] % (Auto) 12.4 % (0.0-13.0) 12/23/19 06:00 Eos % (Auto) 9.7 % (0.9-2.9) H 12/23/19 06:00 Baso % (Auto) 1.1 % (0.2-1.0) H 12/23/19 06:00 Neut # (Auto) 3.1 x10^3/uL (2.2-4.8) 12/23/19 06:00 Lymph # (Auto) 1.6 X10^3/uL (1.3-2.9) 12/23/19 06:00 [place] # (Auto) 0.8 x10^3/uL (0.3-0.8) 12/23/19 06:00 Eos # (Auto) 0.6 x10^3/uL (0.0-0.2) H 12/23/19 06:00 Baso # (Auto) 0.1 X10^3/uL (0.0-0.1) 12/23/19 06:00 Absolute Nucleated RBC 0.1 /100WBC 12/23/19 06:00 Plt Morphology Comment Normal (NORMAL) 12/23/19 06:00 RBC Morphology Abnormal (NORMAL) A 12/23/19 06:00 Anisocytosis Slight A 12/23/19 06:00 Macrocytosis 1+ A 12/23/19 06:00 Sample Site Rrad 12/18/19 18:26 ABG pH 7.410 (7.35-7.45) 12/18/19 18:26 ABG pCO2 47.0 mmHg (35.0-45.0) H 12/18/19 18:26 ABG pO2 124.0 mmHg (80.0-100.0) H 12/18/19 18:26 ABG HCO3 29.8 mmol/L (22-26) H 12/18/19 18:26 ABG O2 Saturation 99.0 % (90-100) 12/18/19 18:26 ABG Base Excess 4.3 mmol/L (-2.0-2.0) H 12/18/19 18:26 Fredrick Test Pos 12/18/19 18:26 A-a Gradient 17.0 mmHg 12/18/19 18:26 FiO2 28.0 12/18/19 18:26 Blood Gas Comments Pt volodymyr well elj 12/18/19 18:26 Sodium 149 mmol/L (136-145) H 12/23/19 06:00 Corrected Sodium 150 mmol/L (136-145) H 12/23/19 06:00 Potassium 4.1 mmol/L (3.5-5.1) 12/23/19 06:00 Chloride 116 mmol/L (98-107) H* 12/23/19 06:00 Carbon Dioxide 27.7 mmol/L (21-32) 12/23/19 06:00 BUN 46 mg/dL (7-18) H 12/23/19 06:00 Creatinine 1.09 mg/dL (0.55-1.02) H 12/23/19 06:00 Est GFR (MDRD) Af Amer > 60 (>60) 12/23/19 06:00 Est GFR (MDRD) Non-Af 53 (>60) L 12/23/19 06:00 Glucose 127 mg/dL (65-99) H 12/23/19 06:00 POC Glucose (mg/dL) 107 mg/dL (65-99) H 12/23/19 06:11 Lactic Acid 2.9 mmol/L (0.4-2.0) H 12/17/19 09:15 Calcium 10.0 mg/dL (8.5-10.1) 12/23/19 06:00 Corrected Calcium 11.6 mg/dL (8.5-10.1) H 12/23/19 06:00 Magnesium 2.8 mg/dL (1.7-2.9) 12/16/19 20:34 Total Bilirubin 1.80 mg/dL (0.2-1.0) H 12/23/19 06:00 AST 66 Units/L (15-37) H 12/23/19 06:00 ALT 48 Units/L (12-78) 12/23/19 06:00 Alkaline Phosphatase 99 Units/L (46-116) 12/23/19 06:00 Ammonia 75 umol/L (11-32) H 12/23/19 06:00 Creatine Kinase 1003 Units/L (26-192) H 12/19/19 05:05 CK-MB (CK-2) 10.4 ng/mL (0-4.0) H* 12/19/19 05:05 CK/CKMB % Calc 1.0 % (<4) 12/19/19 05:05 Troponin I 0.10 ng/mL (0-1.5) 12/19/19 05:05 Total Protein 5.0 g/dL (6.4-8.2) L 12/23/19 06:00 Albumin 2.0 g/dL (3.4-5.0) L 12/23/19 06:00 Globulin 3.0 g/dL (2.5-4.5) 12/23/19 06:00 Albumin/Globulin Ratio 0.7 Ratio (1.1-2.1) L 12/23/19 06:00 Specimen Type Catherized urine 12/17/19 00:05 Urine Color Jayne (YELLOW) 12/17/19 00:05 Urine Appearance Cloudy (CLEAR) 12/17/19 00:05 Urine pH 5.0 (5.0 - 8.0) 12/17/19 00:05 Ur Specific [place] 1.020 (1.000-1.030) 12/17/19 00:05 Urine Protein 2+ (NEGATIVE) 12/17/19 00:05 Urine Glucose (UA) Negative (NEGATIVE) 12/17/19 00:05 Urine Ketones 1+ (NEGATIVE) 12/17/19 00:05 Urine Occult Blood 2+ (NEGATIVE) 12/17/19 00:05 Urine Nitrite Positive (NEGATIVE) 12/17/19 00:05 Urine Bilirubin 2+ (NEGATIVE) 12/17/19 00:05 Urine Urobilinogen 3+ (NORMAL) 12/17/19 00:05 Ur Leukocyte Esterase 2+ (NEGATIVE) 12/17/19 00:05 Urine RBC 0-2 /HPF (0-3) 12/17/19 00:05 Urine WBC 5-10 /HPF (0-5) A 12/17/19 00:05 Ur Squamous Epith Cells Numerous /HPF (NEGATIVE) 12/17/19 00:05 Urine Bacteria 3+ /HPF (NEGATIVE) 12/17/19 00:05 Hyaline Casts Moderate /LPF (NEGATIVE) 12/17/19 00:05 Granular Casts Few /LPF (NEGATIVE) 12/17/19 00:05 Ur Culture Indicated? Yes/culture set up 12/17/19 00:05 SARS-CoV-2 (PCR) Negative (NEGATIVE) 12/16/19 20:20 Plan (1) Altered mental status, unspecified: Status: Acute Qualifiers: Altered mental status type: stupor Qualified Code(s): R40.1 - Stupor Plan: -Suspect that this is due to hepatic encephalopathy with elevated ammonia levels. She is currently on Lactulose. Ammonia levels improved. 5. Hypertension. We have not resumed her anti-hypertensive medications because of her severe hypotension on arrival. Her blood pressure continues to be stable at 117/56 this morning. (2) Acute renal failure: Status: Acute Plan: Continue with gentle hydration with free water via the NG tube along with normal saline as KVO. We will perform speech consult when the patient is more awake to assess for the ability to tolerate oral intake. She is still NPO at this time. (3) Hypernatremia: Status: Acute Plan: Continue to trend (4) UTI (urinary tract infection): Status: Acute Plan: Continue Rocephin+Zyvox (5) Hypertension: Status: Acute
[2019-12-23] MEDS: LOVENOX INJ 30 MG SYR SC SCH (12:15)
[2019-12-23] MEDS ORDERED: NS 1/2 1000 ML IV 1,000 ML IV ONE ×2 (17:37→20:32)
[2019-12-23] MEDS: NS 1/2 1000 ML IV 1,000 ML IV SCH ×3 (17:43→21:00)
[2019-12-23] MEDS: PRAVACHOL PO SCH (21:37)
[2019-12-24] MEDS: CHRONULAC PO SCH ×2 (05:41→08:41)
[2019-12-24 06:23] LABS: BASOPHILS # (AUTO) 0.1 X10^3/uL (0.0-0.1); EOSINOPHILS # (AUTO) 0.4 x10^3/uL (0.0-0.2); EOSINOPHILS % (AUTO) 5.6 % (0.9-2.9); HEMATOCRIT 39.3 % (36.0-47.0); HEMOGLOBIN 13.2 g/dL (12.0-16.0); LYMPHOCYTES # (AUTO) 1.5 X10^3/uL (1.3-2.9); LYMPHOCYTES % (AUTO) 22.6 % (21.0-51.0); MEAN CORPUSCULAR HEMOGLOBIN 35.7 pg (27.0-34.0); MEAN CORPUSCULAR HGB CONC 33.6 g/dL (33.0-35.0); MEAN PLATELET VOLUME 9.9 fL (7.4-11.0); MONOCYTES # (AUTO) 0.7 x10^3/uL (0.3-0.8); MONOCYTES % (AUTO) 10.7 % (0.0-13.0); NEUTROPHILS # (AUTO) 3.9 x10^3/uL (2.2-4.8); NEUTROPHILS % (AUTO) 60.1 % (42.0-75.0); PLATELET COUNT 100 X10^3/uL (150.0-450.0); RED BLOOD COUNT 3.71 X10^6/uL (3.5-5.4); RED CELL DISTRIBUTION WIDTH 18.3 % (11.6-16.5); WHITE BLOOD COUNT 6.5 X10^3/uL (3.6-10.0)
[2019-12-24 06:36] LABS: ALBUMIN 2.2 g/dL (3.4-5.0); CALCIUM 10.1 mg/dL (8.5-10.1); CARBON DIOXIDE 27.7 mmol/L (21-32); COR CA(FOR HYPOALB) 11.5 mg/dL (8.5-10.1); CREATININE 1.31 mg/dL (0.55-1.02); TOTAL PROTEIN 5.4 g/dL (6.4-8.2)
[2019-12-24 07:19] LABS: PLATELET MORPHOLOGY COMMENT NORMAL (NORMAL)
[2019-12-24] MEDS: ROCEPHIN VIAL 1 GRAM 1 G in NS 100 ML IV 100 ML IV SCH (08:41)
[2019-12-24] MEDS: XIFAXAN PO SCH (08:51)
[2019-12-24] MEDS: ASPIRIN 81 MG CHEWTAB PO SCH (08:51)
[2019-12-24] MEDS: LOVENOX INJ 30 MG SYR SC SCH (08:52)
[2019-12-24] MEDS: NS 1/2 1000 ML IV 1,000 ML IV SCH (09:43)
[2019-12-24 11:57] VITALS: BP 112/55
== END 2019-12-24 11:45 | DRG 442 ==
LOC: ER 20:17 → MED/SURG 22:03
PROVIDERS: ADMIT Internal Medicine; ATTEND Internal Medicine
DX: I95.9 Hypotension, unspecified; Z11.59 Encounter for screening for other viral diseases; F05 Delirium due to known physiological condition; E87.5 Hyperkalemia; K72.00 Acute and subacute hepatic failure without coma; I10 Essential (primary) hypertension; F03.90 Unspecified dementia, unspecified severity, without behavioral disturbance, psychotic disturbance, mood disturbance, and anxiety; R41.82 Altered mental status, unspecified; I87.2 Venous insufficiency (chronic) (peripheral); N17.9 Acute kidney failure, unspecified; E66.9 Obesity, unspecified; E11.9 Type 2 diabetes mellitus without complications; N39.0 Urinary tract infection, site not specified; E86.0 Dehydration
CPT/HCPCS: 36415; 36600; 51702; 70450; 70551; 71010; 71045; 74000; 74018; 80053; 81001; 82140; 82550; 82553; 82803; 83605; 83735; 84484; 85025; 87040; 87086; 87635; 93005; 94760; 96365; 96367; 96374; 99284; A4222; J0696; J1650; J1940; J7030; J7050